=== PATIENT | female | born 1995 ===

== ENCOUNTER 2017-03-03 20:34 | Emergency (ER) | payer MEDICAID ==
[2017-03-03 21:18] VITALS: RESP 16; TEMP 98.2
--- NOTE | 2017-03-03 21:34 | C.PDOC ---
History Of Present Illness 21 year old female presents to the ED c/o pain in the back of her head SP falling. Patient reports she was pulled by her dog which caused her to fall back on her stairs and hit the back of her head. 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 Patient denies LOC, weakness, numbness, blurry vision, other injury. - HPI Time Seen by Provider: 03/03/17 20:56 Chief Complaint (Nursing): Trauma History Per: Patient History/Exam Limitations: no limitations Onset/Duration Of Symptoms: Hrs Injury Occurred (Timing): Hours Ago: Location Of Injury: Posterior: Head Severity: None Recent travel outside of the [place]: No Additional History Per: Patient - Fall Fall:Prior To Injury: Lost Balance Past Medical History Reviewed: Historical Data, Nursing Documentation, Vital Signs Vital Signs: Last Vital Signs Temp 98.2 F 03/03/17 20:47 Pulse 70 03/03/17 21:47 Resp 16 03/03/17 21:47 BP 115/84 03/03/17 21:47 Pulse Ox 98 03/03/17 21:47 - Medical History PMH: No Chronic Diseases Surgical History: No Surg Hx Family History: States: Unknown Family Hx - Social History Hx Alcohol Use: Yes Hx Substance Use: No - Immunization History Hx Tetanus Toxoid Vaccination: No Hx Influenza Vaccination: No Review Of Systems Constitutional: Negative for: Fever, Chills Eyes: Negative for: Vision Change Cardiovascular: Negative for: Chest Pain, Palpitations Respiratory: Negative for: Cough, Shortness of Breath Gastrointestinal: Positive for: Vomiting. Negative for: Nausea, Abdominal Pain Musculoskeletal: Negative for: Neck Pain Neurological: Positive for: Headache. Negative for: Weakness, Numbness, Dizziness Physical Exam - Physical Exam Appears: Non-toxic, No Acute Distress Skin: Normal Color, Warm, Dry Head: Normacephalic, Tenderness (occipital area), Other (no palpable hematoma) Eye(s): bilateral: Normal Inspection, PERRL, EOMI Nose: No Discharge, No Deformity Oral Mucosa: Moist Neck: Normal ROM, No Midline Cervical Tenderness, No Paracervical Tenderness, Supple Chest: Symmetrical Cardiovascular: Rhythm Regular, No Murmur Respiratory: Normal Breath Sounds, No Rales, No Rhonchi, No Wheezing Gastrointestinal/Abdominal: Soft, No Tenderness Back: Normal Inspection Extremity: Normal ROM, No Pedal Edema, No Calf Tenderness, No Deformity, No Swelling Neurological/Psych: Oriented x3, Normal Speech, Normal Cognition, Normal Motor, Normal Sensation Gait: Steady ED Course And Treatment O2 Sat by Pulse Oximetry: 97 (On RA) Pulse Ox Interpretation: Normal Progress Note: Plan: -Tylenol 975 mg PO. I discussed the risk (radiation) and benefit (finding a problem needing surgery) with the patient. The patient is acting normally and has a normal neurological exam. The likelihood of finding a lesion needing intervention on the CT scan is extremely low. Patient agrees that at this time no CT scan will be done. If there is any change or new concern, the patient will return to the ED for further evaluation. 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 - Scribe Statement The provider has reviewed the documentation as recorded by the Scribe Horace Mckenzie All medical record entries made by the Scribe were at my direction and personally dictated by me. I have reviewed the chart and agree that the record accurately reflects my personal performance of the history, physical exam, medical decision making, and the department course for this patient. I have also personally directed, reviewed, and agree with the discharge instructions and disposition.
[2017-03-03 21:48] VITALS: BP 115/84; PULSE 70
[2017-03-03 22:25] VITALS: O2SAT 97
== END 2017-03-03 21:47 | disposition home or self-care (01) ==
LOC: C.ER 20:34
DX: S06.0X0A Concussion without loss of consciousness, initial encounter (principal); W19.XXXA Unspecified fall, initial encounter

== ENCOUNTER 2017-03-13 10:25 | Emergency (ER) | payer MEDICAID ==
[2017-03-13 10:35] VITALS: BMI 28.3
[2017-03-13] MEDS ORDERED: Lactated Ringer's 1,000 ML IV STA (10:54)
[2017-03-13] MEDS ORDERED: Lactated Ringer's 1,000 ML ONE (11:20)
--- NOTE | 2017-03-13 11:38 | C.PDOC ---
History Of Present Illness 21 year old female, with no significant PMHx presents to ED for evaluation of body aches, chills, epigastric abdominal pain associated with nausea, 1 episode of non-bilious vomiting, and few episodes of watery diarrhea since 3:00 this morning. Denies fever, severe headache, dizziness, neck pain, drooling, dysphagia, dyspnea, chest pain, shortness of breath, cough, palpitation, hematemesis, dysuria, hematuria, urinary frequency, or back pain. Ambulate to ED for evaluation, not in any apparent distress. Time Seen by Provider: 03/13/17 10:53 Chief Complaint (Nursing): Abdominal Pain History Per: Patient History/Exam Limitations: no limitations Onset/Duration Of Symptoms: Hrs Current Symptoms Are (Timing): Still Present Location Of Pain/Discomfort: Epigastric Quality Of Discomfort: "Pain" Associated Symptoms: Chills, Nausea, Vomiting, Diarrhea. denies: Loss Of Appetite, Back Pain, Chest Pain, Constipation, Urinary Symptoms Exacerbating Factors: None Alleviating Factors: None Recent travel outside of the [place]: No Additional History Per: Patient Abnormal Vaginal Bleeding: No Past Medical History Reviewed: Historical Data, Nursing Documentation, Vital Signs Vital Signs: Last Vital Signs Temp 98.9 F 03/13/17 13:28 Pulse 81 03/13/17 13:28 Resp 18 03/13/17 13:28 BP 124/85 03/13/17 13:28 Pulse Ox 99 03/13/17 13:28 Family History: States: Unknown Family Hx - Social History Hx Alcohol Use: Yes Hx Substance Use: No - Immunization History Hx Tetanus Toxoid Vaccination: No Hx Influenza Vaccination: No Hx Pneumococcal Vaccination: No Review Of Systems Except As Marked, All Systems Reviewed And Found Negative. Constitutional: Positive for: Chills, Other (body aches). Negative for: Fever Cardiovascular: Negative for: Chest Pain, Palpitations, Light Headedness Respiratory: Negative for: Cough, Shortness of Breath Gastrointestinal: Positive for: Nausea, Vomiting, Abdominal Pain, Diarrhea. Negative for: Constipation, Hematochezia, Hematemesis Genitourinary: Negative for: Dysuria, Frequency, Hematuria, Vaginal Discharge Musculoskeletal: Negative for: Back Pain Physical Exam - Physical Exam Appears: Non-toxic, No Acute Distress Skin: Normal Color, Warm, Dry, No Rash Head: Normacephalic Eye(s): bilateral: PERRL Oral Mucosa: Moist, No Drooling Neck: Supple Cardiovascular: Rhythm Regular, No Murmur Respiratory: No Accessory Muscle Use, No Rales, No Rhonchi, No Wheezing Gastrointestinal/Abdominal: Soft, Tenderness (mild epigastric), No Guarding, No Rebound Back: No CVA Tenderness Extremity: Normal ROM, No Pedal Edema, No Deformity Neurological/Psych: Oriented x3, Normal Speech ED Course And Treatment - Laboratory Results Result Diagrams: 03/13/17 11:48 03/13/17 11:48 Lab Interpretation: No Acute Changes Urine POC: Negative O2 Sat by Pulse Oximetry: 99 (RA) Pulse Ox Interpretation: Normal Progress Note: Blood work, urinalysis, Influenza AB was ordered and reviewed. Pt was given Zofran, Pepcid, Toradol, Carafate, and IV fluids. Pt was OBS in Ed for 3 hours and remained stable. On re-evaluation, pt is afebrile, hemodynamicaly stable. Non-toxic. Tolerate Po well in Ed. Ambulatory in Ed with stable gait. PulseOx 99% RA. ENT: no acute findings. neck: Supple, (-) midline tenderness, (-) JVD, (-) carotid bruits B/L. Lungs: CTA B/L, BS equal B /L. CVS: (+)S1S2, reg. Abd: benign, (-) guarding or rebound, (-) localized tenderness. Back: (-) CVA tenderness. Blood work review, appears normal. UA normal, (-) preg. Influenza (-). Pt has clinical findings c/w epigastric pain , N/V r/o viral illness. Pt advised. ref. to F/u with PMD, GI in2 -3 days for re-eavl. return to ED if any worsening ornew changes. Disposition Counseled Patient/Family Regarding: Studies Performed, Diagnosis, Need For Followup, Rx Given - Disposition Referrals: [facility] [Outside] Disposition: HOME/ ROUTINE Disposition Time: 12:34 Condition: STABLE Additional Instructions: ENCOURAGE FLUIDS DIET RESTRICTION FOR 1-2 DAYS TAKE MEDICATION NEED FOLLOW UP WITH PMD, GI IN 2-3 DAYS FOR RE-EVALUATION. RETURN TO ED IF ANY WORSENING OR NEW CHANGES. 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 - Scribe Statement The provider has reviewed the documentation as recorded by the Olindaibdavid King All medical record entries made by the Olindaibdavid were at my direction and personally dictated by me. I have reviewed the chart and agree that the record accurately reflects my personal performance of the history, physical exam, medical decision making, and the department course for this patient. I have also personally directed, reviewed, and agree with the discharge instructions and disposition.
[2017-03-13 11:57] LABS: BASO # 0.1 K/uL (0.0-0.2); BASO % 0.7 % (0.0-2.0); EOS # 0.1 K/uL (0.0-0.7); EOS % 1.3 % (0.0-4.0); LYMPH # 1.3 K/uL (1.0-4.3); LYMPH % 11.9 % (20.0-40.0); MEAN CELL VOLUME 86.5 fL (81.0-99.0); MEAN CORPUSCULAR HGB CONC 33.6 g/dL (33.0-37.0); MEAN PLATELET VOLUME 10.4 fL (7.2-11.7); MONO # 0.6 K/uL (0.0-0.8); MONO % 5.5 % (0.0-10.0); NEUT # 8.9 K/uL (1.8-7.0); NEUT % 80.6 % (50.0-75.0); RBC 4.82 Mil/uL (3.80-5.20); RED CELL DISTRIBUTION WIDTH 13.8 % (11.5-14.5)
[2017-03-13 12:01] LABS: HCG,QUALITATIVE URINE NEGATIVE (NEGATIVE)
[2017-03-13 12:03] LABS: SQUAMOUS EPITHIAL 3 /hpf (0-5); URINE BILIRUBIN NEGATIVE (NEGATIVE); URINE BLOOD NEGATIVE (NEGATIVE); URINE CLARITY Clear (Clear); URINE COLOR Yellow (YELLOW); URINE GLUCOSE (UA) NORMAL (Normal); URINE LEUKOCYTE ESTERASE NEG Leu/uL (Negative); URINE NITRATE NEGATIVE (NEGATIVE); URINE PROTEIN NEGATIVE (NEGATIVE); URINE UROBILINOGEN NORMAL mg/dL (0.2-1.0)
[2017-03-13 12:16] LABS: ALB/GLOB RATIO 1.3 (1.0-2.1); ALBUMIN 4.5 g/dL (3.5-5.0); ALT/SGPT 46 U/L (9-52); AST/SGOT 30 U/L (14-36); BLOOD UREA NITROGEN 11 mg/dL (7-17); CALCIUM 8.5 mg/dl (8.6-10.4); GFR AFRICAN-AMERICAN > 60; GFR NON-AFRICAN AMERICAN > 60
[2017-03-13] MEDS ORDERED: Sucralfate 1 gm/10 ml Oral Susp UD ONE (12:57)
[2017-03-13 13:29] VITALS: BP 124/85; PULSE 81; RESP 18; TEMP 98.9; O2SAT 99
== END 2017-03-13 13:30 | disposition home or self-care (01) ==
LOC: C.ER 10:25
DX: R10.13 Epigastric pain (principal); R11.2 Nausea with vomiting, unspecified
CPT/HCPCS: 80053; 81001; 84703; 85025; 87804; 96374; 96375; 99284; J2405; J7120

== ENCOUNTER 2017-03-15 05:25 | Emergency (ER) | payer MEDICAID ==
[2017-03-15 05:26] VITALS: BMI 28.3
[2017-03-15 05:51] VITALS: RESP 20
[2017-03-15 06:11] LABS: HCG,QUALITATIVE URINE NEGATIVE (NEGATIVE)
[2017-03-15 06:13] LABS: SQUAMOUS EPITHIAL 20 /hpf (0-5); URINE BILIRUBIN NEGATIVE (NEGATIVE); URINE BLOOD NEGATIVE (NEGATIVE); URINE CLARITY Hazy (Clear); URINE COLOR Yellow (YELLOW); URINE GLUCOSE (UA) NORMAL (Normal); URINE LEUKOCYTE ESTERASE NEG Leu/uL (Negative); URINE NITRATE NEGATIVE (NEGATIVE); URINE PROTEIN NEGATIVE (NEGATIVE)
--- NOTE | 2017-03-15 06:25 | C.PDOC ---
History Of Present Illness Presents to ED with complaints of headache and nausea that began after falling and hitting her head yesterday. Pt was seen last week in [facility] ED and she was discharged with concussion instructions. Denies fever, chills or vomiting. Time Seen by Provider: 03/15/17 06:25 Chief Complaint (Nursing): Headache History Per: Patient History/Exam Limitations: no limitations Onset/Duration Of Symptoms: Hrs Current Symptoms Are (Timing): Still Present Severity: Mild Pain Scale Rating Of: 3 Preceeding Symptoms: None Associated Symptoms: Nausea. denies: Vomiting Recent travel outside of the [place]: No Past Medical History Reviewed: Historical Data, Nursing Documentation, Vital Signs Vital Signs: Last Vital Signs Temp 99 F 03/15/17 05:46 Pulse 80 03/15/17 05:46 Resp 20 03/15/17 05:46 BP 142/99 H 03/15/17 05:46 Pulse Ox 98 03/15/17 06:40 - Medical History PMH: No Chronic Diseases Surgical History: No Surg Hx Family History: States: No Known Family Hx - Social History Hx Alcohol Use: Yes Hx Substance Use: No - Immunization History Hx Tetanus Toxoid Vaccination: No Hx Influenza Vaccination: No Hx Pneumococcal Vaccination: No Review Of Systems Constitutional: Negative for: Fever, Chills Gastrointestinal: Positive for: Nausea. Negative for: Vomiting Neurological: Positive for: Headache. Negative for: Weakness, Numbness Psych: Negative for: Anxiety, Suicidal ideation Physical Exam - Physical Exam Appears: Non-toxic, No Acute Distress Skin: Warm, Dry Head: Normacephalic Eye(s): bilateral: Normal Inspection Oral Mucosa: Moist Neck: Trachea Midline, Supple Chest: Symmetrical, No Tenderness Cardiovascular: Rhythm Regular Respiratory: No Rales, No Rhonchi, No Wheezing Gastrointestinal/Abdominal: Soft, No Tenderness Neurological/Psych: Oriented x3, Normal Speech, Normal Cognition, Other (No focal deficits ) ED Course And Treatment O2 Sat by Pulse Oximetry: 98 (RA) Pulse Ox Interpretation: Normal Progress Note: Administered Zofran ODT. Ordered CT of head and urinalysis. Disposition Counseled Patient/Family Regarding: Studies Performed, Diagnosis - Disposition Disposition Time: 06:25 Condition: UNKNOWN Forms: [employer] (Fijian) - Clinical Impression Clinical Impression: Headache, Concussion with no loss of consciousness - Scribe Statement The provider has reviewed the documentation as recorded by the Olindaibe Larisa Soliz All medical record entries made by the Scribdavid were at my direction and personally dictated by me. I have reviewed the chart and agree that the record accurately reflects my personal performance of the history, physical exam, medical decision making, and the department course for this patient. I have also personally directed, reviewed, and agree with the discharge instructions and disposition. Physician Patient Turnover Patient Signed Over To: Naz Pryor Handoff Comments: pending ct scan and re-eval
--- NOTE | 2017-03-15 08:33 | CT ---
PROCEDURE: CT HEAD WITHOUT CONTRAST. HISTORY: fall COMPARISON: None available. TECHNIQUE: Axial computed tomography images were obtained through the head/brain without intravenous contrast. Radiation dose: Total exam DLP = 812 mGy-cm. This CT exam was performed using one or more of the following dose reduction techniques: Automated exposure control, adjustment of the mA and/or kV according to patient size, and/or use of iterative reconstruction technique. FINDINGS: HEMORRHAGE: No intracranial hemorrhage. BRAIN: No mass effect or edema. No atrophy or chronic microvascular ischemic changes. VENTRICLES: Unremarkable. No hydrocephalus. CALVARIUM: Unremarkable. PARANASAL SINUSES: Unremarkable as visualized. No significant inflammatory changes. MASTOID AIR CELLS: Unremarkable as visualized. No inflammatory changes. OTHER FINDINGS: None. IMPRESSION: No acute intracranial abnormality. If symptoms persists, consider MRI.
[2017-03-15 09:08] VITALS: BP 137/83; PULSE 72; TEMP 98.2; O2SAT 99
== END 2017-03-15 09:22 | disposition home or self-care (01) ==
LOC: C.ER 05:25
DX: S06.0X0A Concussion without loss of consciousness, initial encounter (principal); R51 Headache